=== PATIENT | male | born 1970 | race Caucasian/White ===

== ENCOUNTER 2017-04-15 12:18 | Emergency (ER) | payer OTHER ==
[2017-04-15 12:28] VITALS: BP 139/72; PULSE 79; BMI 26.4
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
== END 2017-04-15 13:41 | disposition home or self-care (01) ==
LOC: JERFT 12:18
DX: S80.812A Abrasion, left lower leg, initial encounter (principal); Y35.891A Legal intervention involving other specified means, law enforcement official injured, initial encounter; W45.8XXA Other foreign body or object entering through skin, initial encounter; Y93.89 Activity, other specified; Y92.9 Unspecified place or not applicable; F17.210 Nicotine dependence, cigarettes, uncomplicated
CPT/HCPCS: 99281-25

== ENCOUNTER 2017-07-28 22:12 | Emergency (ER) | payer OTHER, BC ==
[2017-07-28 22:25] VITALS: BP 143/82; PULSE 72; TEMP 98.3; BMI 26.4
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
--- NOTE | 2017-07-28 22:37 | PDOC ---
*Physical Exam - Vital Signs Last Vital Signs Temp Pulse Resp BP Pulse Ox 98.3 F 72 16 143/82 100 07/28/17 22:20 07/28/17 22:20 07/28/17 22:20 07/28/17 22:20 07/28/17 22:20 Medical Decision Making - Medical Decision Making 07/28/17 22:37 agree with care from REJI Stuart *DC/Admit/Observation/Transfer Diagnosis at time of Disposition: Exposure to blood or body fluid - Discharge Dispostion Disposition: HOME Condition at time of disposition: Stable - Referrals Referrals: Héctor Lara MD [Primary Care Provider] - - Patient Instructions Printed Discharge Instructions: How to Handle Body Fluid Exposure -- Healthcare Worker Additional Instructions: Return back to the emergency department as needed. - Post Discharge Activity Forms/Work/School Notes: Back to Work
== END 2017-07-28 22:46 | disposition home or self-care (01) ==
LOC: JER 22:12
DX: Z77.21 Contact with and (suspected) exposure to potentially hazardous body fluids (principal); Y35.891A Legal intervention involving other specified means, law enforcement official injured, initial encounter; Y93.F9 Activity, other caregiving; Y92.89 Other specified places as the place of occurrence of the external cause; Y99.0 Civilian activity done for income or pay
CPT/HCPCS: 99281-25

== ENCOUNTER 2019-08-17 19:42 | Emergency (ER) | payer OTHER, BC ==
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
[2019-08-17 19:54] VITALS: BP 136/88; PULSE 82; TEMP 97.1; BMI 26.4
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
== END 2019-08-17 20:33 | disposition home or self-care (01) ==
LOC: JER 19:42
DX: Z77.21 Contact with and (suspected) exposure to potentially hazardous body fluids (principal); S60.476A Other superficial bite of right little finger, initial encounter; Y35.811A Legal intervention involving manhandling, law enforcement official injured, initial encounter; Y93.89 Activity, other specified; Y92.89 Other specified places as the place of occurrence of the external cause; Y99.0 Civilian activity done for income or pay
CPT/HCPCS: 99281-25

== ENCOUNTER 2020-08-22 17:52 | Emergency (ER) | payer BC, OTHER ==
[2020-08-22 18:30] VITALS: BP 124/82; PULSE 73; TEMP 98.7; BMI 27.1
== END 2020-08-22 18:31 | disposition home or self-care (01) ==
LOC: FER 17:52
DX: S60.511A Abrasion of right hand, initial encounter (principal)
CPT/HCPCS: 99283-25

== ENCOUNTER 2021-06-17 19:08 | Emergency (ER) | payer OTHER | END 2021-06-17 20:43 | disposition home or self-care (01) | LOC: FER 19:08 | DX: S60.511A Abrasion of right hand, initial encounter (principal); S80.02XA Contusion of left knee, initial encounter; W22.8XXA Striking against or struck by other objects, initial encounter; Y35.811A Legal intervention involving manhandling, law enforcement official injured, initial encounter | CPT/HCPCS: 99281-25 ==

== ENCOUNTER 2021-07-30 23:25 | Emergency (ER) | payer OTHER, BC ==
[2021-07-30 23:58] VITALS: BP 113/69; PULSE 76; TEMP 99.1; BMI 27.1
== END 2021-07-31 00:11 | disposition home or self-care (01) ==
LOC: FER 23:25
DX: S50.311A Abrasion of right elbow, initial encounter (principal); S50.02XA Contusion of left elbow, initial encounter; W22.8XXA Striking against or struck by other objects, initial encounter
CPT/HCPCS: 99282-25

== ENCOUNTER 2022-03-22 15:15 | Emergency (ER) | payer OTHER ==
[2022-03-22 15:58] VITALS: BP 122/83; PULSE 79; TEMP 97.9; BMI 26.4
== END 2022-03-22 16:00 | disposition home or self-care (01) ==
LOC: FER 15:15
DX: Z77.21 Contact with and (suspected) exposure to potentially hazardous body fluids (principal); Y35.893A Legal intervention involving other specified means, suspect injured, initial encounter
CPT/HCPCS: 99281-25

== ENCOUNTER 2022-05-15 22:56 | Emergency (ER) | payer OTHER ==
[2022-05-15 23:09] VITALS: BP 124/79; PULSE 75; RESP 16; TEMP 98.8; BMI 26.4
== END 2022-05-15 23:23 | disposition home or self-care (01) ==
LOC: FER 22:56
DX: S60.312A Abrasion of left thumb, initial encounter (principal); Y35.891A Legal intervention involving other specified means, law enforcement official injured, initial encounter
CPT/HCPCS: 99281-25

== ENCOUNTER 2022-08-05 19:18 | Emergency (ER) | payer OTHER ==
[2022-08-05 19:31] VITALS: BP 141/90; PULSE 84; RESP 17; TEMP 98.5; BMI 27.1
== END 2022-08-05 19:34 | disposition home or self-care (01) ==
LOC: FER 19:18
DX: Z77.21 Contact with and (suspected) exposure to potentially hazardous body fluids (principal)
CPT/HCPCS: 99282-25

== ENCOUNTER 2023-08-09 03:48 | Emergency (ER) | payer OTHER ==
[2023-08-09 03:55] VITALS: BP 138/90; PULSE 74; RESP 16; TEMP 98.5; BMI 27.1
== END 2023-08-09 04:27 | disposition home or self-care (01) ==
LOC: FER 03:48
DX: Z77.21 Contact with and (suspected) exposure to potentially hazardous body fluids (principal)
CPT/HCPCS: 99282-25